=== PATIENT | male | born 1990 | race Caucasian/White ===

== ENCOUNTER 2016-10-05 09:46 | Emergency (ER) | payer OTHER ==
[~2016-10-05] VITALS: Ht 203.2 cm; Wt 81.8 kg
[2016-10-05 09:54] VITALS: BP 135/96; PULSE 109; RESP 18; O2SAT 99
--- NOTE | 2016-10-05 10:11 | ED.REPORT ---
HPI-Abd Pain M Under 40 Date of Service Oct 05, 2016 ED Provider: Dr. Marie Pt is a 26 y/o healthy male presenting to the ED due to persistent vomiting onset 20 hours ago. He has been vomiting dark brown liquid. He denies diarrhea, fever, SOB, sick contacts. He has had vomiting previously with hangover but never like this. He has had 1 bowel movement since this began which was normal. He has tried Zofran and Prilosec without relief.He drinks about 4-6 beers a day , last drink 36 hours ago. He uses marijuana almost every day. He denies surgeries. Nursing Notes Stated Complaint: NAUSEA/VOMITING/ BLACK SPOTS IN VOMIT Chief Complaint: Male Abdominal Pain Nursing Notes Reviewed: Yes Allergies: Coded Allergies: No Known Allergies (Unverified , 10/05/16) Scheduled Pantoprazole DR (Protonix) 40 Mg Tablet 40 MG PO BID BID for 2 weeks, then qDay Scheduled PRN Ondansetron ODT (Zofran ODT) 4 Mg Tablet 4 MG PO Q4H PRN PRN For Nausea Promethazine (Promethazine) 25 Mg Tablet 25 MG PO Q6H PRN PRN For Nausea/ Vomiting General Time Seen by MD: 10:11 Chief Complaint Vomiting severe Hx Obtained From: Patient Arrived By: Walk-in Sudden in Onset?: No Onset Occurred: 17 - 20 hours ago Symptom Duration: Since onset Progression since Onset: Constant Location: : Diffuse Quality: Aching Severity: Current: Mild Severity: Maximum: Mild Similar Sx Previous: No Past Medical History Past Medical History None reported Past Surgical History None reported Social History Alcohol Use: "Social" Ambulatory Status Independent Review of Systems Constitutional: Denies: Chills, Fever Respiratory: Denies: Shortness of breath Cardiovascular: Denies: Chest pain GI: Reports: Abdominal pain, Nausea, Vomiting, Denies: Diarrhea Complete sys rev & neg: except as marked. Physical Exam Initial Vital Signs Vital Signs (First) Date Time Temp Pulse Resp B/P Pulse Ox O2 Delivery O2 Flow Rate FiO2 10/05/16 09:54 36.6 109 18 135/96 99 10/05/16 13:48 Room Air Initial VS: Reviewed, Vital signs normal Head / Eyes: Atraumatic, Normocephalic, PERRL ENT: Mucous membranes moist, Conjunctiva normal, No scleral icterus Neck: Supple, Full range of motion Skin: Warm, Dry, No cyanosis Neurologic: Alert, Oriented, Nonfocal Psychiatric: Mood/affect normal, Behavior normal, Normal thought content General/Constitutional: Awake, Alert, Cooperative Distress / Hydration: Positive: Distress moderate Thin Respiratory / Chest: Atraumatic, Breath sounds NL, Breath sounds = bilat, No respiratory distress, No rales, No rhonchi, No wheezing, No retractions, No stridor, No chest tenderness, No chest wall deformity, No crepitus Cardiovascular: Regular rhythm, Heart sounds NL, No gallop, No murmurs, No rubs , Cap refill not delayed, Peripheral circulation NL Heart Rate / Rhythm: Positive: Tachycardia Abdomen: Atraumatic, Soft, Non-tender, No guarding, No rebound Actively vomiting coffee ground emesis Back: Full range of motion, Painless range of motion Interpretation & Diagnostics Lab Results Interpretation Result Diagram: 10/05/16 1259 10/05/16 1032 Test 10/05/16 10:32 10/05/16 12:03 10/05/16 12:59 10/05/16 13:45 White Blood Count 13.8th/mm3 (3.8-10.1) Red Blood Count 5.21mil/mm3 (4.40-5.80) Mean Corpuscular Volume 97.7fL (81-100) Mean Corpuscular Hemoglobin 34.2pg (27.0-35.0) Mean Corpuscular Hemoglobin Concent 35.0% (32.0-37.0) Red Cell Distribution Width 12.0% (12.3-15.4) Platelet Count 197bil/L (150-400) Neutrophils (%) (Auto) 86.4% (40-74) Lymphocytes (%) (Auto) 5.6% (14-46) Monocytes (%) (Auto) 7.6% (4-12) Eosinophils (%) (Auto) 0% (0-5) Basophils (%) (Auto) 0.1% (0-3) Prothrombin Time 10.1sec (8.1-12.5) Prothromb Time International Ratio 0.95ratio Sodium Level 136mEq/L (134-144) Potassium Level 4.0mEq/L (3.5-5.2) Chloride Level 87mEq/L (97-108) Carbon Dioxide Level 12mmol/L (18-29) Blood Urea Nitrogen 9mg/dL (6-20) Creatinine 0.92mg/dL (0.76-1.27) Estimat Glomerular Filtration Rate 105mL/min (>59) Glucose Level 165mg/dL (60-99) Calcium Level 10.1mg/dL (8.5-10.1) Magnesium Level 2.0mg/dL (1.6-2.6) Total Bilirubin 1.3mg/dL (0.0-1.2) Aspartate Amino Transf (AST/SGOT) 116U/L (0-50) Alanine Aminotransferase (ALT/SGPT) 78U/L (0-44) Alkaline Phosphatase 80U/L (25-150) Total Protein 8.9g/dL (6.4-8.4) Albumin 5.0g/dL (3.4-5.0) Lipase 15U/L (13-60) Lactic Acid Level 1.3mmol/L (0.4-2.0) Hemoglobin 15.2g/dL (13.8-17.2) Hematocrit 43.8% (41.0-50.0) Hold Urine Received (Received) CT Abd / Pelvis Interpretation IMPRESSION: 1. No acute intra-abdominal findings. Normal appendix. 2. Hepatic steatosis. Dictated by: Renita Fajardo M.D. on 10/05/2016 at 12:21 Approved by: Renita Fajardo M.D. on 10/05/2016 at 12:30 Study type: Abdominal CT IV contrast Interpretation / Wet Read by: Interpret - Radiologist Re-Eval/Medical Decision Med Decision/Clinical Course Does not seem to represent life-threatening gastrointestinal bleeding, discuss with GI who agrees. Patient will be discharged on Protonix, promethazine, Zofran. Return precautions given. Will follow up with GI as outpatient. Re-Evaluation/Progress : Time of Eval: 14:17 )( Re-Eval Abdomen: Soft, Non-tender Patient Status: Condition resolved, Complete relief Re-Evaluation/Progress Note: Pt rechecked. Vomiting resolved. Feels OK to go home. Informed pt of plan for treatment. Pt understands and agrees with plan for treatment. F/U and RTER warnings given. All questions addressed. Consultation : Referral / Consult Name: Chris Guerrero MD Call Returned at: 14:18 Zmt Operator: Agrees with eval, Agrees with plan Note: Believes the patient is OK for discharge. Counseled Regarding: Diagnosis, Lab results, Need for follow-up, When/why to return to ED Patient Discharge & Departure Primary Impression: Hematemesis Nausea presence: with nausea Qualified Code: K92.0 - Hematemesis Additional Impression: Marijuana use Disposition: Home Discharge Condition All VS Reviewed: Yes Condition: Stable Additional Instructions: Overall it does not appear that you are having life-threatening intestinal bleeding. Take Protonix twice daily for 2 weeks then change to once daily. Use Zofran and Phenergan as needed for vomiting. Stop using alcohol, marijuana or any other drugs or tobacco. Return to ER for persistent vomiting of blood lightheadedness or other concerns. Follow-up with gastroenterology for further evaluation. Referrals: Osbaldo Reynolds MD (PCP) Junior Attestation Portions of this note were transcribed by Zan De Jesus. I, Dr. Marie personally performed the history, physical exam and medical decision-making; I reviewed and confirmed the accuracy of the information in the transcribed note. Signed by Junior Starr, 10/05/16 - [id number] copies to: Osbaldo Reynolds MD, Timothy S DO Oct 05, 2016 10:11 ZAN DE JESUS Oct 05, 2016 10:21
[2016-10-05] MEDS ORDERED: Promethazine Inj 25 MG in 0.9% Sodium Chloride 50 ML IV ONE (10:20)
[2016-10-05] MEDS ORDERED: 0.9% Sodium Chloride 1,000 ML IV ONE ×2 (10:20→11:15)
[2016-10-05] MEDS ORDERED: HYDROmorphone 0.5 mg/0.5 mL iSecure Syringe IVPUSH PRN (10:20)
[2016-10-05] MEDS ORDERED: Ondansetron 2 mg/mL 2 mL Inj IVPUSH PRN (10:20)
[2016-10-05] MEDS ORDERED: Pantoprazole 4 mg/mL 10 mL Inj IVPUSH ONE ×2 (10:20→10:30)
[2016-10-05 10:42] LABS: BASOPHILS % (AUTO) 0.1 % (0-3); EOSINOPHILS % (AUTO) 0 % (0-5); MONOCYTES % (AUTO) 7.6 % (4-12); Mean Corpuscular Hemoglobin 34.2 pg (27.0-35.0); Mean Corpuscular Volume 97.7 fL (81-100); NEUTROPHILS % (AUTO) 86.4 % (40-74); Platelet Count 197 bil/L (150-400)
[2016-10-05 10:57] LABS: INR 0.95 ratio
--- NOTE | 2016-10-05 12:32 | DRSVH ---
PROCEDURE: CT ABDOMEN AND PELVIS WITH CONTRAST ([id number]) INDICATIONS: abd pain, persistent vomiting TECHNIQUE: After the administration of intravenous contrast, 5 mm thick sections acquired from the diaphragm to the symphysis. 5 mm coronal and sagittal reformats were acquired. For radiation dose reduction, the following was used: automated exposure control, adjustment of mA and/or kV according to patient siz e. COMPARISON: None. FINDINGS: Image quality: Excellent. ABDOMEN: Lung bases: Lung bases are clear. Heart size is normal. Solid organs: The liver is diffusely hypodense suggesting fatty infiltration. The spleen demonstrate s normal size and enhancement. Gallbladder is unremarkable. Biliary system is non dilated. Pancreas enhances normally. No adrenal nodules. Kidneys demonstrate normal size and enhancement, without hy dronephrosis. Peritoneum and bowel: Bowel loops demonstrate normal wall thickness and caliber. The appendix is thi n walled and gas filled. No free fluid or air. Nodes and vessels: No retroperitoneal or mesenteric adenopathy by size criteria. Aorta and inferior vena cava are normal in size. Miscellaneous: No ventral hernias. PELVIS: Genitourinary: Bladder wall thickness is normal. Miscellaneous: No inguinal hernias or adenopathy. Bones: No suspicious bony lesions. No vertebral body compression fractures. IMPRESSION: 1. No acute intra-abdominal findings. Normal appendix. 2. Hepatic steatosis. Dictated by: Renita Fajardo M.D. on 10/05/2016 at 12:21 Approved by: Renita Fajardo M.D. on 10/05/2016 at 12:30
[2016-10-05 13:48] VITALS: BP 133/74; PULSE 81; RESP 17; O2SAT 97
[2016-10-05] MEDS ORDERED: Alum-Mag Hydrox-Simeth 30 mL Suspension PO ONE (14:00)
[2016-10-05] MEDS ORDERED: ONDA4TAB9 PO (14:15)
[2016-10-05] MEDS ORDERED: PANT40TA2 PO (14:15)
[2016-10-05] MEDS ORDERED: PROM25TA14 PO (14:15)
[2016-10-05 14:23] VITALS: BP 133/74; PULSE 81; RESP 17; O2SAT 97
== END 2016-10-05 14:23 | disposition home or self-care (01) ==
LOC: SED 09:46
DX: K92.0 Hematemesis (principal); F15.90 Other stimulant use, unspecified, uncomplicated
CPT/HCPCS: 36415; 74177; 80053; 83605; 83690; 83735; 85014; 85018; 85025; 85610; 86850; 96361; 96374; 96375; 96376; 99285; J1170; J2405; J7030; Q9967